=== PATIENT | male | born 1955 | race African-American/Black ===

== ENCOUNTER 2018-04-09 14:12 | Observation (INO) | payer MEDICAID, OTHER ==
--- NOTE | 2018-04-09 14:20 | EDPHY ---
HPI/HX/ROS/PE/MDM Narrative: CHIEF COMPLAINT: Cardiac Alert HPI: The patient is 63 y/o male with no known cardiac disease arriving emergently via EMS as a Cardiac Alert after he was found slumped over in [employer] this afternoon. EMS describes him as diaphoretic, lethargic, and slow to respond to questions throughout their contact. The patient remembers being in [employer] and people around him trying to cool him down. He described substernal chest pain radiating into his left shoulder and down his left arm to EMS. They administered 324mg PO aspirin and SL nitro en route. Patient's chest pain improved significantly after nitro. He continues to be lethargic here, but is responding to questions. He denies dyspnea, vomiting, abdominal pain, recent illness, recent trauma. He denies any significant medical history, but also is not sure the last time he saw a physician. REVIEW OF SYSTEMS: Aside from elements discussed in the HPI, a comprehensive 10-point review of systems was reviewed and is negative. PMH: Appendectomy SOCIAL HISTORY: Smokes cigars. Retired. Daughter lives in [place]. PHYSICAL EXAM: General:Patient is alert with eyes closed, appears anxious. ENT:Eyes are normal to inspection. ENT inspection normal. Neck: Normal inspection. Full range of motion. Respiratory:No respiratory distress. Breath sounds normal bilaterally. Cardiovascular: Regular rate and rhythm. Strong peripheral pulses. Normal cap refill. Abdomen:The abdomen is nontender to palpation. There are no peritoneal signs. Back: Normal to inspection. No tenderness to palpation. Skin: Normal color. No rash. Warm and dry. Extremities: Normal appearance. Full range of motion. Neuro: Oriented x3. Normal motor function. Normal sensory function. ED Course: 1411: Met EMS upon arrival and took report. This is a 62 y/o male with no known cardiac disease who presents as a Cardiac Alert after he was found slumped over in [employer]. He reported substernal radiating chest pain to EMS that nearly resolved with one dose of nitro. He received 324mg PO aspirin prior to arrival. He has been lethargic and anxious, but able to answer questions here. Exam otherwise normal. Plan for rapid cardiac work up in preparation for microbiological laboratory technician. The 12 lead EKG was interpreted by myself. Anterior STEMI. See hard copy and/or "tracemaster" electronic copy for interpretation. Chest x-ray: negative for acute process. ISTAT troponin is 0.00. 1440: Dr. Ackerman, sql bi developer, arrived in the ED. Consulted with him regarding patient. He does not plan to take patient to microbiological laboratory technician now if he is pain-free. He interprets EKG as probable old CT with aneurysmal pattern. 1447: Dr. Ackerman recommends IV saline and echocardiogram here. Dr. Ackerman reports initial read on echocardiogram shows anterior apical aneurysmal segment with severely reduced LV function. He will admit patient and requests internal medicine consult during admission. Critical care time spent by me, Dr. Lainez, exclusively with this patient was 35 minutes, exclusive of PA time and exclusive of procedures. The organ system at risk was cardiovascular. Time spent in urgent assessment, serial assessments of the patient, consideration of interventions, cardiology consultation, and review of EKG, labs, and imaging. - Data Points Imaging Results: Imaging Impressions Chest X-Ray 04/09/18 14:18 Impression: 1. Mild cardiomegaly. 2. No pneumonia or pulmonary edema. Imaging: I viewed and interpreted images myself Laboratory Results: Laboratory Results 04/09/18 14:15 04/09/18 14:15 04/09/18 04/09/18 04/09/18 14:18 14:16 14:15 WBC RBC Hgb POC Hgb 16.7 gm/dL gm/dL (13.7-17.5) Hct POC Hct 49 % % (40-51) MCV MCH MCHC RDW Plt Count MPV Neut % (Auto) Lymph % (Auto) [place] % (Auto) Eos % (Auto) Baso % (Auto) Nucleat RBC Rel Count Absolute Neuts (auto) Absolute Lymphs (auto) Absolute Monos (auto) Absolute Eos (auto) Absolute Basos (auto) Absolute Nucleated RBC Immature Gran % Immature Gran # PT INR APTT POC Sodium 144 mEq/L mEq/L (135-145) Sodium POC Potassium 4.0 mEq/L mEq/L (3.3-5.0) Potassium POC Chloride 106 mEq/L mEq/L (97-110) Chloride Carbon Dioxide Anion Gap POC BUN 15 mg/dL mg/dL (7-23) BUN Creatinine POC Creatinine 1.1 mg/dL mg/dL (0.7-1.3) Estimated GFR Glucose POC Glucose 107 mg/dL H mg/dL (70-100) Calcium CK-MB (CK-2) Fraction Pending POC Troponin I 0.00 ng/mL ng/mL (0.00-0.08) Troponin I Pending NT-Pro-B Natriuret Pep Pending TSH Pending 04/09/18 04/09/18 04/09/18 14:15 14:15 14:15 WBC 9.76 10^3/uL H 10^3/uL (3.80-9.50) RBC 5.06 10^6/uL 10^6/uL (4.40-6.38) Hgb 15.7 g/dL g/dL (13.7-17.5) POC Hgb Hct 45.7 % % (40.0-51.0) POC Hct MCV 90.3 fL fL (81.5-99.8) MCH 31.0 pg pg (27.9-34.1) MCHC 34.4 g/dL g/dL (32.4-36.7) RDW 14.5 % % (11.5-15.2) Plt Count 309 10^3/uL 10^3/uL (150-400) MPV 10.6 fL fL (8.7-11.7) Neut % (Auto) 44.8 % % (39.3-74.2) Lymph % (Auto) 44.6 % % (15.0-45.0) [place] % (Auto) 7.6 % % (4.5-13.0) Eos % (Auto) 1.7 % % (0.6-7.6) Baso % (Auto) 1.0 % % (0.3-1.7) Nucleat RBC Rel Count 0.0 % % (0.0-0.2) Absolute Neuts (auto) 4.37 10^3/uL 10^3/uL (1.70-6.50) Absolute Lymphs (auto) 4.35 10^3/uL H 10^3/uL (1.00-3.00) Absolute Monos (auto) 0.74 10^3/uL 10^3/uL (0.30-0.80) Absolute Eos (auto) 0.17 10^3/uL 10^3/uL (0.03-0.40) Absolute Basos (auto) 0.10 10^3/uL 10^3/uL (0.02-0.10) Absolute Nucleated RBC 0.00 10^3/uL 10^3/uL (0-0.01) Immature Gran % 0.3 % % (0.0-1.1) Immature Gran # 0.03 10^3/uL 10^3/uL (0.00-0.10) PT 14.2 SEC SEC (12.0-15.0) INR 1.08 (0.83-1.16) APTT 26.7 SEC SEC (23.0-38.0) POC Sodium Sodium 145 mEq/L mEq/L (135-145) POC Potassium Potassium 4.5 mEq/L mEq/L (3.3-5.0) POC Chloride Chloride 108 mEq/L mEq/L (97-110) Carbon Dioxide 25 mEq/l mEq/l (22-31) Anion Gap 12 mEq/L mEq/L (8-16) POC BUN BUN 16 mg/dL mg/dL (7-23) Creatinine 1.0 mg/dL mg/dL (0.7-1.3) POC Creatinine Estimated GFR > 60 Glucose 98 mg/dL mg/dL (70-100) POC Glucose Calcium 10.1 mg/dL mg/dL (8.5-10.4) CK-MB (CK-2) Fraction POC Troponin I Troponin I NT-Pro-B Natriuret Pep TSH Medications Given: Discontinued Medications Sodium Chloride (Ns) 1,000 mls @ 0 mls/hr IV ONCE ONE PRN Reason: Wide Open Stop: 04/09/18 14:47 Last Admin: 04/09/18 14:47 Dose: 1,000 mls Lorazepam (Ativan Injection) 1 mg IVP EDNOW ONE Stop: 04/09/18 15:24 Last Admin: 04/09/18 15:30 Dose: 1 mg Point of Care Test Results: Chemistry 04/09/18 04/09/18 14:18 14:16 POC Sodium 144 mEq/L mEq/L (135-145) POC Potassium 4.0 mEq/L mEq/L (3.3-5.0) POC Chloride 106 mEq/L mEq/L (97-110) POC BUN 15 mg/dL mg/dL (7-23) POC Creatinine 1.1 mg/dL mg/dL (0.7-1.3) POC Glucose 107 mg/dL H mg/dL (70-100) POC Troponin I 0.00 ng/mL ng/mL (0.00-0.08) ISTAT H&H 04/09/18 14:18 POC Hgb 16.7 gm/dL gm/dL (13.7-17.5) POC Hct 49 % % (40-51) General Time Seen by Provider: 04/09/18 14:12 Initial Vital Signs: Initial Vital Signs Temperature (C) 36.6 C 04/09/18 14:13 Heart Rate 66 04/09/18 14:13 Respiratory Rate 16 04/09/18 14:13 Blood Pressure 150/82 H 04/09/18 14:13 O2 Sat (%) 96 04/09/18 14:13 O2 Delivery Mode Nasal Cannula O2 (L/minute) 2 Allergies/Adverse Reactions: No Known Allergies Allergy (Unverified 03/05/13 06:19) Home Medications: Medication Instructions Recorded NK [No Known Home Meds] 04/09/18 Departure - Departure Disposition: [facility] Inpatient Acute Clinical Impression: apical aneurysm, reduced LV function Syncope Qualifiers: Syncope type: unspecified Qualified Code(s): R55 - Syncope and collapse Condition: Fair Report Scribed for: Nicolas Lainez Report Scribed by: Elsy Batista Date of Report: 04/09/18 Time of Report: 14:20 Physician Review and Approval Statement: Portions of this note were transcribed by an ED scribe. I personally performed the history, physical exam, and medical decision making; and confirm the accuracy of the information in the transcribed note.
--- NOTE | 2018-04-09 14:24 | CPEKG ---
Heart Rate: 66 RR Interval: 909 P-R Interval: 184 QRSD Interval: 102 QT Interval: 472 QTC Interval: 495 P [place]: 79 QRS [place]: -69 T Wave [place]: 230 EKG Severity - ABNORMAL ECG - EKG Impression: SINUS RHYTHM EKG Impression: LEFT ANTERIOR FASCICULAR BLOCK EKG Impression: EXTENSIVE ANTERIOR INFARCT, ACUTE EKG Impression: NONSPECIFIC T ABNORMALITIES, INFERIOR LEADS EKG Impression: BORDERLINE PROLONGED QT INTERVAL Electronically Signed By: Lewis Monzon 12-Apr-2018 20:45:10
[2018-04-09] MEDS ORDERED: fentaNYL 100 MCG/2 ML INJ ONE (14:34)
[2018-04-09] MEDS ORDERED: IOPAMIDOL (ISOVUE-370) 150 ML BTL IV ONE (14:34)
[2018-04-09] MEDS ORDERED: LIDOCAINE 1% 300 MG/30 ML SDV ONE (14:34)
[2018-04-09] MEDS ORDERED: MIDAZOLAM 2 MG/2 ML VIAL ONE (14:34)
[2018-04-09 14:37] LABS: PLATELET COUNT 309 10^3/uL (150-400)
[2018-04-09 14:41] LABS: INR 1.08 (0.83-1.16); PROTIME(PATIENT) 14.2 SEC (12.0-15.0)
[2018-04-09] MEDS ORDERED: NS 1,000 ML IV ONE (14:46)
--- NOTE | 2018-04-09 14:47 | CPEKG ---
Heart Rate: 63 RR Interval: 952 P-R Interval: 188 QRSD Interval: 106 QT Interval: 416 QTC Interval: 426 P [place]: 76 QRS [place]: -64 T Wave [place]: 162 EKG Severity - ABNORMAL ECG - EKG Impression: SINUS RHYTHM EKG Impression: LEFT ANTERIOR FASCICULAR BLOCK EKG Impression: EXTENSIVE ANTERIOR INFARCT, RECENT Electronically Signed By: Lewis Monzon 12-Apr-2018 20:45:18
[2018-04-09] MEDS ORDERED: LORazepam 2 MG/ML INJ IVP ONE (15:23)
[2018-04-09] MEDS ORDERED: ONDANSETRON DISINTEGRATING 4 MG TAB PO PRN (15:30)
[2018-04-09] MEDS ORDERED: ONDANSETRON 4 MG/2 ML VIAL IVP PRN (15:30)
[2018-04-09] MEDS ORDERED: NS 1,000 ML IV SCH (15:30)
[2018-04-09] MEDS ORDERED: LORazepam 2 MG/ML INJ IVP PRN (15:30)
[2018-04-09] MEDS ORDERED: NITROGLYCERIN 0.4 MG BTL SL PRN (15:37)
[2018-04-09] MEDS ORDERED: ACETAMINOPHEN 325 MG TAB PO PRN (15:37)
--- NOTE | 2018-04-09 15:42 | PDCARCONS ---
Cardiology Consult Reason for Consult: Syncope Chief Complaint: Passed out Requesting Physician: Dr. Lainez History of Present Illness: 62-year-old male history of untreated hypertension, tobacco use was in [employer] today. He was sitting at a meal. He became visibly diaphoretic though he does not recall this and had a syncopal spell while seated. On arrival of the emergency crew he was still somewhat confused. He did not report chest pain, shortness of breath. He had no nausea or vomiting. Patient has no prior cardiovascular history. 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 On my arrival to the emergency department he was resting comfortably he. He had no chest pain. He had no shortness of breath. He had no diaphoresis nausea or vomiting. He had no arm or back pain. He is relatively sedentary. He has no family history of early heart disease. He has no history of diabetes. He has been in usual state of good health. History Information - Allergies/Home Medication List Allergies/Adverse Reactions: No Known Allergies Allergy (Unverified 03/05/13 06:19) Home Medications: Miscellaneous Medical Supply [NO HOME MEDS] 03/05/13 [Last Taken Unknown] I have personally reviewed and updated: family history, medical history, social history, surgical history Past Medical History: - Past Medical History hypertension Additional medical history: Osteoarthritis - Surgical History Reports: angioplasty, spinal surgery - Family History Positive for: non-pertinent - Social History Smoking Status: Current every day smoker Alcohol Use: None Drug Use: None Physical Exam Physical Exam: Temp Pulse Resp BP Pulse Ox 36.6 C 71 16 152/85 H 99 04/09/18 14:13 04/09/18 15:32 04/09/18 15:32 04/09/18 15:32 04/09/18 15:32 Constitutional: no apparent distress Eyes: PERRL, anicteric sclera, EOMI, No icteric sclera, No pale conjunctiva, No scleral injection Ears, Nose, Mouth, Throat: dry mucous membranes Cardiovascular: regular rate and rhythym, no murmur, rub, or gallop, pulses symmetric bilaterally, No systolic murmur, No JVD Peripheral Pulses: 2+: carotid (R), carotid (L), femoral (R), femoral (L), dorsalis-pedis (R), dorsalis-pedis (L) Respiratory: no respiratory distress, no rales or rhonchi, clear to auscultation Gastrointestinal: normoactive bowel sounds, soft, non-tender abdomen, no palpable masses, No tenderness, No ascites, No hepatosplenomegally Genitourinary: no bladder fullness Skin: warm, no rashes or abrasions Musculoskeletal: full muscle strength, No muscular tenderness, No generalized weakness Neurologic: AAOx3, sensation intact bilaterally, other (Non intentional tremor of the right leg), No weakness, No facial droop Psychiatric: interacting appropriately, anxious Lymph, Heme, Immunologic: no cervical LAD, no supraclavicular LAD Lab and Imaging 04/09/18 14:15 04/09/18 14:15 WBC 9.76 10^3/uL (3.80-9.50) H 04/09/18 14:15 RBC 5.06 10^6/uL (4.40-6.38) 04/09/18 14:15 Hgb 15.7 g/dL (13.7-17.5) 04/09/18 14:15 POC Hgb 16.7 gm/dL (13.7-17.5) 04/09/18 14:18 Hct 45.7 % (40.0-51.0) 04/09/18 14:15 POC Hct 49 % (40-51) 04/09/18 14:18 MCV 90.3 fL (81.5-99.8) 04/09/18 14:15 MCH 31.0 pg (27.9-34.1) 04/09/18 14:15 MCHC 34.4 g/dL (32.4-36.7) 04/09/18 14:15 RDW 14.5 % (11.5-15.2) 04/09/18 14:15 Plt Count 309 10^3/uL (150-400) 04/09/18 14:15 MPV 10.6 fL (8.7-11.7) 04/09/18 14:15 Neut % (Auto) 44.8 % (39.3-74.2) 04/09/18 14:15 Lymph % (Auto) 44.6 % (15.0-45.0) 04/09/18 14:15 [place] % (Auto) 7.6 % (4.5-13.0) 04/09/18 14:15 Eos % (Auto) 1.7 % (0.6-7.6) 04/09/18 14:15 Baso % (Auto) 1.0 % (0.3-1.7) 04/09/18 14:15 Nucleat RBC Rel Count 0.0 % (0.0-0.2) 04/09/18 14:15 Absolute Neuts (auto) 4.37 10^3/uL (1.70-6.50) 04/09/18 14:15 Absolute Lymphs (auto) 4.35 10^3/uL (1.00-3.00) H 04/09/18 14:15 Absolute Monos (auto) 0.74 10^3/uL (0.30-0.80) 04/09/18 14:15 Absolute Eos (auto) 0.17 10^3/uL (0.03-0.40) 04/09/18 14:15 Absolute Basos (auto) 0.10 10^3/uL (0.02-0.10) 04/09/18 14:15 Absolute Nucleated RBC 0.00 10^3/uL (0-0.01) 04/09/18 14:15 Immature Gran % 0.3 % (0.0-1.1) 04/09/18 14:15 Immature Gran # 0.03 10^3/uL (0.00-0.10) 04/09/18 14:15 PT 14.2 SEC (12.0-15.0) 04/09/18 14:15 INR 1.08 (0.83-1.16) 04/09/18 14:15 APTT 26.7 SEC (23.0-38.0) 04/09/18 14:15 POC Sodium 144 mEq/L (135-145) 04/09/18 14:18 Sodium 145 mEq/L (135-145) 04/09/18 14:15 POC Potassium 4.0 mEq/L (3.3-5.0) 04/09/18 14:18 Potassium 4.5 mEq/L (3.3-5.0) 04/09/18 14:15 POC Chloride 106 mEq/L (97-110) 04/09/18 14:18 Chloride 108 mEq/L (97-110) 04/09/18 14:15 Carbon Dioxide 25 mEq/l (22-31) 04/09/18 14:15 Anion Gap 12 mEq/L (8-16) 04/09/18 14:15 POC BUN 15 mg/dL (7-23) 04/09/18 14:18 BUN 16 mg/dL (7-23) 04/09/18 14:15 Creatinine 1.0 mg/dL (0.7-1.3) 04/09/18 14:15 POC Creatinine 1.1 mg/dL (0.7-1.3) 04/09/18 14:18 Estimated GFR > 60 04/09/18 14:15 Glucose 98 mg/dL (70-100) 04/09/18 14:15 POC Glucose 107 mg/dL (70-100) H 04/09/18 14:18 Calcium 10.1 mg/dL (8.5-10.4) 04/09/18 14:15 POC Troponin I 0.00 ng/mL (0.00-0.08) 04/09/18 14:16 EKG Interpretation: Positive for: Q waves, ST elevation Echocardiogram: Echocardiogram done at the bedside shows a large anterior apical aneurysmal wall motion abnormality with severely reduced LV systolic function. A/P Assessment: 62-year-old male no known cardiovascular history presenting with a episode of syncope while seated. There was no associated warning. It was not associated with chest pain or palpitations. EKG shows evidence of a old anterior wall myocardial infarction. Echocardiogram confirms a large anterior apical aneurysmal segment with severely reduced LV function. He has no symptoms of heart failure at this time. Telemetry monitoring has not shown a dysrhythmia though clearly he is at risk. Clinical history not concerning for pulmonary embolic disease as etiology for syncope. Recommendations are to admit the patient to the hospital for telemetry monitoring overnight. Aggressive hydration in light of his NPO status and what sounds like vagal syncope. He will need complete risk stratification for his occult coronary artery disease with clear evidence of old anterior wall myocardial infarction. He currently does not describe angina or any heart failure symptoms. Will begin low-dose beta-rubén, Adolfo inhibitor, statin therapy as well as daily aspirin. Will rule him out for myocardial infarction by serial enzymes I think this is unlikely. No indications for heparin at this point. No indications for acute cardiac catheterization. Plan: 1. Telemetry monitoring. 2. Cardiac catheterization tomorrow. 3. Begin beta-rubén, Adolfo inhibitor, statin, low-dose aspirin. 4. Hydration overnight 5. Rule out myocardial infarction. Past Medical History PMH: - Personal History Current Tetanus/Diphtheria Vaccine: Unsure - Medical/Surgical History Hx Asthma: No Hx Chronic Respiratory Disease: No Hx Cardiac Disease: No Hx Diabetes: No Hx Renal Disease: No Hx Alcoholism: No Hx Cirrhosis: No Hx HIV/AIDS: No Hx Splenectomy or Spleen Trauma: No Other PMH: appy - Social History Smoking Status: Current every day smoker Additional Social History: Review of Systems Review of Systems: - Review of Systems Constitutional: diaphoresis. denies: chills, fever EENTM: no symptoms reported Respiratory: no symptoms reported Cardiac: no symptoms reported Gastrointestinal/Abdominal: no symptoms reported Genitourinary: no symptoms Musculoskelatal: no symptoms Skin: no symptoms Neurological: no symptoms Hematologic/Lymphatic: no symptoms reported Immunologic/allergic: no symptoms reported All Other Systems: Reviewed and Negative
--- NOTE | 2018-04-09 16:24 | ECHO ---
[email or web address] [address] [address] Main: [phone] Fax: Transthoracic Echocardiogram Name: DENA TORRES MR#: [id number] Study Date: 04/09/2018 Study Time: 03:20 PM Date of : 1955 Age: 62 year(s) Height: 188 cm (74 in.) Weight: 95.26 kg (210 lb.) BSA: 2.22 m2 Gender: Male Examination: Echo Indication: Abnormal EKG Image Quality: Contrast: Requested by: Nicolas Lainez BP: 136 mmHg/76 mmHg Heart Rate: Rhythm: Normal sinus rhythm Indication: Abnormal EKG Procedure Staff Religious Education Director: Praveen Sharpe RDCS Reading Physician: Vikash Ackerman MD Requesting Provider: Conclusions: No pericardial effusion. Ejection fraction 20% with large anterior septal akinesis consistent with old myocardial infarction. Left atrial dilatation. Mild mitral regurgitation. Measurements: Chambers Valvular Assessment AV/MV Valvular Assessment TV/PV Normal Normal Normal Name Value Range Name Value Range Name Value Range Ao Elisa (MM): 3.1 cm (2.2 cm-3.7 AV Vmax: 1.49 m/s (1 m/s-1.7 PV Vmax: 1.07 m/s (0.6 m/s-0.9 cm) m/s) m/s) IVSd (2D): 0.8 cm (0.6 cm-1.1 AV maxP mmHg ( - ) PV PGmax: 5 mmHg ( - ) cm) LVOT Vmax: 0.84 m/s (0.7 m/s-1.1 LVDd (2D): 6.0 cm (4.2 cm-5.9 m/s) cm) MV E Vmax: 1.14 m/s ( - ) LVDs (2D): 5.5 cm (2.1 cm-4 MV A Vmax: 0.96 m/s ( - ) cm) MV E/A: 1.19 ( - ) LVPWd (2D): 1.1 cm (0.6 cm-1 cm) LVEF (2D): 20 (>=54 %) Continued Measurements: Chambers Valvular Assessment AV/MV Name Value Name Value LADs Lon.6 cm MV E/E' Septal: 17.50 LA Area: 27.3 cm2 MV E/E' Lateral: 12.00 LA Volume: 85 ml LA Volume Index: 38.3 ml/m2 Patient: DENA TORRES Study Date: 04/09/2018 Page 1 of 2 03:20 PM Findings: Left Ventricle: Mildly dilated left ventricle. Severely reduced systolic LV function. EF is 20 %. Diastolic dysfunction is present. . There is basilar to mid anteroseptal hypokinesis. There is apical hypokinesis.. Right Ventricle: Normal size right ventricle. Normal RV function. Left Atrium: The left atrium is moderately to severely dilated. Right Atrium: The right atrium is mildly dilated. Mitral Valve: The mitral valve is normal in appearance. Trivial to mild mitral regurgitation. Aortic Valve: The aortic valve is normal in appearance. There is no aortic valve regurgitation. No aortic valve stenosis is present. Tricuspid Valve: The tricuspid valve appears normal. Pulmonic Valve: The pulmonic valve is normal in appearance and function. Aorta: The aorta is normal. Pericardium: No pericardial effusion. (No Signature Object) Patient: DENA TORRES Study Date: 04/09/2018 Page 2 of 2 03:20 PM [id number]
[2018-04-09] MEDS: CARVEDILOL 3.125 MG TAB PO SCH (17:47)
--- NOTE | 2018-04-09 17:59 | ASMTCMCOM ---
CM Note CM Note Notes: Pt presented to the ED via EMS as a cardiac alert. Pt had a syncopal episode while eating lunch at [employer]. Pt admitted for cardiac monitoring, cardiac cath tomorrow, and to rule out DC. Spoke w/pt and he requested that his daughter, Erika Godwin (c:[phone], h: [phone]) be contacted. This CM called [phone] and left a voicemail. A woman named Elke called back and stated she was his ; this CM spoke with patient and he does not want any information given to Elke. Elke requested that CM tell pt that if he needs anything to please contact her ([phone]); pt informed. Pt couldn't remember Erika's cell # at the time but she was contacted by Elke and then eventually called ED CM. Spoke with Erika and she says she will come to the hospital. Erika lives in [place] and pt's address is also listed as [place]. Pt states he doesn not have a PCP. Pt also had a few friends from the [employer] arrive to the ED. Exact DC needs unknown. CM to follow. Date Signed: 04/09/2018 05:58 PM Electronically Signed By:Jacqueline Potter RN
[2018-04-10 03:54] LABS: INR 1.19 (0.83-1.16); PROTIME(PATIENT) 15.3 SEC (12.0-15.0)
[2018-04-10 03:58] LABS: PLATELET COUNT 251 10^3/uL (150-400)
[2018-04-10] MEDS ORDERED: diphenhydrAMINE 25 MG CAP PO ONE ×3 (06:00→10:00)
[2018-04-10] MEDS ORDERED: DIAZEPAM 5 MG TAB PO ONE ×2 (06:00→09:20)
[2018-04-10] MEDS ORDERED: FAMOTIDINE 20 MG TAB PO ONE ×2 (06:00→09:20)
[2018-04-10] MEDS: CARVEDILOL 3.125 MG TAB PO SCH ×2 (08:11→17:58)
--- NOTE | 2018-04-10 08:36 | CPEKG ---
Heart Rate: 49 RR Interval: 1224 P-R Interval: 200 QRSD Interval: 108 QT Interval: 476 QTC Interval: 430 P [place]: 76 QRS [place]: -65 T Wave [place]: 212 EKG Severity - ABNORMAL ECG - EKG Impression: SINUS BRADYCARDIA EKG Impression: LEFT ANTERIOR FASCICULAR BLOCK EKG Impression: ANTEROLATERAL INFARCT, RECENT EKG Impression: NONSPECIFIC T ABNORMALITIES, INFERIOR LEADS Electronically Signed By: Lewis Monzon 12-Apr-2018 20:45:25
[2018-04-10] MEDS ORDERED: LISINOPRIL 2.5 MG TAB PO SCH (09:00)
[2018-04-10] MEDS ORDERED: ATORVASTATIN CALCIUM 10 MG TAB PO SCH (09:00)
[2018-04-10] MEDS ORDERED: ASPIRIN EC 81 MG TAB PO SCH (09:00)
--- NOTE | 2018-04-10 09:14 | PDPROPOC ---
Sedation Plan of Care Sedation Plan of Care: vital signs stable, mental status noted, patient educated of risks, benefits, alternatives, patient can tolerate sedation ASA Classification: ASA 3 Planned drugs: fentanyl, midazolam Mallampati Score: Class 2 Mallampati Reference Image: Patient passed 3-3-2 rule?: Yes
--- NOTE | 2018-04-10 09:18 | PDHPUP ---
History & Physical Update H&P update statement: This history and physical update is based on an assessment of the patient which was completed after admission or registration (within 24 hours), but prior to the surgery/procedure. H&P update: H&P reviewed & patient examined, no change in patient's condition since H&P completed
[2018-04-10] MEDS ORDERED: ASPIRIN EC 325 MG TAB PO ONE ×2 (09:20→10:00)
[2018-04-10] MEDS ORDERED: NS 1,000 ML IV SCH (09:30)
[2018-04-10] MEDS ORDERED: DIAZEPAM 5 MG TAB ONE (10:00)
[2018-04-10] MEDS ORDERED: FAMOTIDINE 20 MG TAB ONE (10:00)
[2018-04-10] MEDS ORDERED: LIDOCAINE 1% 300 MG/30 ML SDV ONE (10:19)
[2018-04-10] MEDS ORDERED: VERAPAMIL 5 MG/2 ML VIAL ONE (10:20)
[2018-04-10] MEDS ORDERED: IOPAMIDOL (ISOVUE-370) 150 ML BTL IV ONE (10:20)
[2018-04-10] MEDS ORDERED: MIDAZOLAM 2 MG/2 ML VIAL ONE (10:20)
[2018-04-10] MEDS ORDERED: fentaNYL 100 MCG/2 ML INJ ONE (10:20)
[2018-04-10] MEDS ORDERED: HEPARIN 10,000 UNIT/10 ML MDV (1,000 UNIT/ML) ONE (10:20)
--- NOTE | 2018-04-10 11:42 | PDDXCAT ---
Diagnostic Cath Note - . Date: 04/10/18 Paper Colorer: Nadya (Syncope, abnormal EKG) Indication: High-risk criteria on noninvasive testing (choose option below), other (Syncope, Abnormal EKG) High-risk criteria on non-invasive testing: severe resting left ventricular dysfunction (LVEF<35%) - Procedure Access: left wrist Procedure: left heart catheterization, coronary angiography, left ventriculogram - Materials Left Heart Cath size: 5F Left Heart Cath materials: JL3.5, JR4.0 - Findings-Left Heart Catheterization LM: The LM is 5mm in size and short. It trifurcates into an LAD, Circumflex, and Ramus system. LAD: The LAD is 3.5 mm in size. The LAD is diffusely diseased proximally. There is a 70-80% lesion at the level of a septal takeoff and prior to the LAD diagonal bifurcation. The LAD and diagonal are very small. The LAD is totally occluded in it's distal third with KARL 0 flow. LCX: The circumflex is 3.5 mm in size. There is a 60% blockage in the circ OM posteriorly. RCA: The RCA is 3.5 mm in size. There is diffuse luminal irregularity consistent with underlying atherosclerosis maximal luminal stenosis is 30%. Ramus: The ramus is 2 mm in size. There are luminal irregularities consistent with diffuse atheroscleoris. Maximal luminal stenosis is about 30%. KARL III flow. EDP: The LVEDP is 33 mmHg. LVEF: Severely decreased at 15% Wall motion: The EF is severely decrease at 15%. There is severe and global hypokinesis with mid-distal, apical and distal inferior wall akinesis consistent with anterior and apical aneurysm. Complications: NONE. Estimated blood loss: <50ml Closure method: TR Band Assessment: The patient has an ischemi and dilated cardiomyopathy with a superimposed hypertensive component. In patient's with dilated ischemic cardiomyopathy with EF that remains less than 35% after initiation of standard therapies that may improve ejection fraction such as beta blockers and DANA inhibitors, the patient would meet MADIT II criteria for a defibrillator. Plan: The patient needs to be initiated on Coreg and DANA inhibitors such as Lisinopril. The patient may also benefit from Spironolactone. His creatinine is normal at this time; however, given that he is , Hydralazine or Nitrates may also benefit the patient. The patient will also need to be started on anti-platelet therapy of ASA, specifically at a dose of 162 mg. I think he does need anticoagulation to reduce the risk of an embolic stroke with Coumadin. Intervention: None. The patient has asked that we do not perform an intervention until we have discussed his options with him. Patient Problems: Problems Problem Status Onset Syncope Acute
[2018-04-10] MEDS ORDERED: PNEUMOCOCCAL 0.5ML VACCINE VIAL IM ONE ×2 (11:57→18:00)
[2018-04-10] MEDS ORDERED: ATROPINE SULFATE 1 MG/10 ML SYR IVP PRN (12:31)
[2018-04-10 23:26] VITALS: BP 108/59
[2018-04-11] MEDS ORDERED: SPIRONOLACTONE 25 MG TAB PO SCH (09:00)
--- NOTE | 2018-04-12 14:59 | ASDISCHSUM ---
[facility] Case Management CM Discharge Summary Patient Name: DENA GODWIN Rpt#: [id number] MR#: [id number] Attending: JENNIFER Rogers Date: 04/09/18 Discharge Information Plan Status: Home with No Needs Medically Cleared to Leave: 04/11/2018 Discharge Date: 04/11/2018 CM D/C Disposition: Home, Routine, Self- Care ADT D/C Disposition: Home, Routine, Self-Care Projected Discharge Date: 04/11/2018 Transportation at D/C: Discharge Delay Reason: Follow-Up Date: 04/11/2018 Discharge Slot: Final Diagnosis: Placement Information Patient Contact Information Contact Name: EDGARDO Relationship: Daughter Address: [address] City: [place] Alternate Phone: State/Zip Code: [place] [address] Email: Financial Information Financial Class: Medicaid Primary Plan Desc: MEDICAID HEALTH [facility] Primary Plan Number: [id number] Secondary Plan Desc: Secondary Plan Number: Assessment Information [facility] CM Progress Note CM Note CM Note Notes: Pt presented to the ED via EMS as a cardiac alert. Pt had a syncopal episode [facility] [employer]. Pt admitted for cardiac monitoring, cardiac cath tomorrow, and to rule out VT. Spoke w/pt and he requested that his daughter, Erika Godwin (c:[phone], h: [phone]) be contacted. This CM called [phone] and left a voicemail. A woman named Elke called back and stated she was his ; this CM spoke with patient and he does not want any information given to Elke. Elke requested that CM tell pt that if he needs anything to please contact her ([phone]); pt informed. Pt couldn't remember Erika's cell # at the time but she was contacted by Elke and then eventually called ED CM. Spoke with Erika and she says she will come to the hospital. Erika lives in [place] and pt' s address is also listed as [place]. Pt states he doesn not have a PCP. Pt also had a few friends from the [employer] arrive to the ED. Exact DC needs unknown. CM to follow. Date Signed: 04/09/2018 05:58 PM Electronically Signed By: Jacqueline Potter RN LACE LACE Length of stay for Answers: 1 day current admission Acuity / Level of Answers: No Care: Did the patient have an inpatient admission? Comorbidities - select Answers: Other Notes: untreated HTN, tobacco all that apply use # of Emergency department Answers: 1-2 visits in the last 6 months Score: 3 Date Signed: 04/11/2018 09:45 AM Electronically Signed By: Nydia Ruiz RN Case Management Discharge Plan Note Case Management Discharge Discharge Order Complete? Answers: Yes Patient to Obtain Answers: Independently Medications Discharge Comments Notes: 04/11/2018 Case Management Note There are no case management d/c needs identified. Referred pt to [facility] for support after d/c. Pt to discharge independent with follow up as directed. Date Signed: 04/11/2018 09:44 AM Electronically Signed By: Nydia Ruiz RN Intervention Information Intervention Type: Locating Emergency Contact Date of Service: 04/09/2018 06:03 PM Patient Type: Observation Staff Member: GITA Potter Sharon Hours: 0.5 Discipline: Cage Manager Severity: Comment:
--- NOTE | 2018-04-12 14:59 | PDDCSUM ---
[facility] Patient Name: DENA TORRES Rpt#: [id number] Unit Number: [id number] Attending: VIKASH LOYD Adm Date: 04/09/18 Discharge Summary Discharge Summary: Admission: April 09, 2018. Discharge : April 11, 2018 Admission diagnosis: syncope Discharge diagnosis: Vasovagal syncope coronary artery disease, chronic. Old anterior wall myocardial infarction. Ischemic cardiomyopathy, chronic systolic heart failure, hypertension, hyperlipidemia. Procedures: Echocardiogram. Left heart catheterization. Discharge medications per computer discharge instructions. Follow up; Tyron/Ayanna 1 week. Cardiac rehabilitation Hospital Course: 62 yo male no prior CV history had a witnesses syncopal spell in psychiatric. He was diaphoretic prior to event and returned to consciousness promptly. He was brought to the ER with an abnormal ecg suggesting [place] as a cardiac alert. He was initially evaluated in the ed by echo revealing evidence of old anterior wall myocardial infarction. He was admitted to the hospital. Telemetry revealed no complex arrhythmia. Clinical history most consistent with a vasovagal event. He ruled out for myocardial infarction. He had a mildly elevated BNP. He was taken to the dental laboratory technician apprentice and found to have a chronically occluded LAD with severely reduced LV function. His LVEDP was elevated, He was begun on aggressive medical therapy with beta-rubén, kris inhibitor, Aldactone, Lipitor, and aspirin. He tolerated this well with stable vital signs. He is up ambulating without difficulty and is ready for discharge. I have discussed his problems and the plan for care. Exam today is significant for the following vital signs: Selected Entries 04/11/18 08:09 Heart Rate 49 L Respiratory 18 Rate O2 Sat (%) 99 Temperature (C) 36.8 C Blood Pressure 136/77 H He is laying flat in bed. Puncture site has healed without edema or erythema. He has no JVP. His chest is clear. He has an S4 gallop. Extremities are free of edema. Plan: For follow up with advanced heart failure care. Up titration of beta-rubén. Cardiac rehabilitation. Consider primary prevention ICD. Basic metabolic panel in one week for creatinine and K after initiation of Aldactone and lisinopril. Vikash Loyd MD 04/11/18945 <Electronically signed by Vikash Loyd MD> 1 T: BRUCE 04/11/18931 CC: NONE *PRIMARY CARE PHYS ONLY*; VIKASH LOYD
--- NOTE | 2018-04-12 14:59 | ASMTLACE ---
[facility] Case Management CM LACE Assessment Patient Name: DENA TORRES Rpt#: [id number] MR#: [id number] Attending: JENNIFER Rogers Date: 04/09/18 LACE Length of stay for Answers: 1 day current admission Acuity / Level of Answers: No Care: Did the patient have an inpatient admission? Comorbidities - select Answers: Other Notes: untreated HTN, tobacco all that apply use # of Emergency department Answers: 1-2 visits in the last 6 months Score: 3 Date Signed: 04/11/2018 09:45 AM Electronically Signed By: Nydia Ruiz RN
--- NOTE | 2018-04-12 20:46 | CPEKG ---
Heart Rate: 46 RR Interval: 1304 P-R Interval: 196 QRSD Interval: 102 QT Interval: 484 QTC Interval: 424 P [place]: 73 QRS [place]: -63 T Wave [place]: 216 EKG Severity - ABNORMAL ECG - EKG Impression: SINUS BRADYCARDIA EKG Impression: LEFT ANTERIOR FASCICULAR BLOCK EKG Impression: EXTENSIVE ANTERIOR INFARCT, RECENT EKG Impression: NONSPECIFIC T ABNORMALITIES, INFERIOR LEADS Electronically Signed By: Lewis Monzon 12-Apr-2018 20:45:31
== END 2018-04-11 12:29 | disposition home or self-care (01) ==
LOC: EDUNIT# → F2W 15:56
PROVIDERS: ADMIT Internal Medicine Interventional Cardiology; ATTEND Internal Medicine Interventional Cardiology
PROC: B2151ZZ Fluoroscopy of Left Heart using Low Osmolar Contrast (ICD-10-PCS; principal; 2018-04-09)
PROC: B2111ZZ Fluoroscopy of Multiple Coronary Arteries using Low Osmolar Contrast (ICD-10-PCS; principal; 2018-04-09)
PROC: 4A023N7 Measurement of Cardiac Sampling and Pressure, Left Heart, Percutaneous Approach (ICD-10-PCS; principal; 2018-04-09)
DX: R55 Syncope and collapse (principal); I25.5 Ischemic cardiomyopathy; I42.0 Dilated cardiomyopathy; I25.10 Atherosclerotic heart disease of native coronary artery without angina pectoris; I25.82 Chronic total occlusion of coronary artery; R94.31 Abnormal electrocardiogram [ECG] [EKG]; I25.3 Aneurysm of heart; I25.2 Old myocardial infarction; I50.22 Chronic systolic (congestive) heart failure; I11.0 Hypertensive heart disease with heart failure; E78.5 Hyperlipidemia, unspecified; F17.200 Nicotine dependence, unspecified, uncomplicated; Z23 Encounter for immunization
CPT/HCPCS: 71045; 90471; 92523; 93005; 93308; 93458; C1769; 82435-PO; 82565-PO; 82947-PO; 84132-PO; 84295-PO; 84484-PO; 84520-PO; 85014-PO; 96374; G0009; J1644; J2060; J2250; J3010; Q9967